=== PATIENT | male | born 2000 | race Caucasian/White ===

== ENCOUNTER 2021-12-04 13:43 | Outpatient (CLI) | payer OTHER, SELFPAY ==
--- NOTE | ~2021-12-04 | MR_ITS ---
EXAMINATION: MR knee LT wo con DATE: 12/04/2021 14:36 INDICATION: Left knee pain. TECHNIQUE: Magnetic resonance imaging (MRI) of the left knee was performed without intravenous contra st. Sequences included coronal PD-weighted FSE, coronal PD-weighted FS FSE, sagittal T2-weighted FSE , sagittal PD-weighted FS FSE and axial PD weighted fat saturated FSE. COMPARISON: None. FINDINGS: Medial compartment: Medial meniscus is normal. Articular cartilage is normal. Lateral compartment: Lateral meniscus is normal. Articular cartilage is normal. Patellofemoral compartment: Articular cartilage is normal. Ligaments and tendons: Anterior and posterior cruciate ligaments are normal. The medial collateral ligament and fibular will ateral ligament complex are normal. The extensor mechanism is normal. The visualized medial and later al hamstring tendons as well as the iliotibial band are normal. Fluid: Physiologic amount of fluid in the joint space. No loose osteochondral bodies identified. Osseous/other: Normal marrow signal. No fracture or pathologic marrow replacing process. Mild feathery muscular kaylan a with more prominent epimysial edema along the proximal medial head of the gastrocnemius muscle with out a discrete tear defect consistent with low-grade strain. IMPRESSION: 1. Low-grade strain of the proximal medial head of the gastrocnemius muscle. Reviewed, dictated and finalized at location A.
== END 2021-12-04 13:44 | disposition home or self-care (01) ==
PROVIDERS: PCP Family Medicine Adolescent Medicine; Visit Provider Physician Assistant
DX: S86.812A Strain of other muscle(s) and tendon(s) at lower leg level, left leg, initial encounter (principal); X58.XXXA Exposure to other specified factors, initial encounter
CPT/HCPCS: 73721

== ENCOUNTER 2022-04-29 16:46 | Emergency (ER) | payer OTHER, SELFPAY ==
--- NOTE | ~2022-04-29 | CT_ITS ---
EXAMINATION: CT brain wo con DATE: 04/29/2022 18:20 INDICATION: head injury . TECHNIQUE: Computed tomography (CT) of the head was performed without intravenous contrast. The mA wa s adjusted according to patient size. Iterative reconstruction technique was employed. The dose-lengt h product was 832.33 mGy-cm. COMPARISON: None. FINDINGS: Exam limited by motion, which required repeat imaging. No acute intracranial hemorrhage or extra-axial fluid collection. No hydrocephalus, mass, or herniation. No acute ischemic infarct. Unremarkable dural venous sinus attenuation. No acute osseous abnormality. The aerated spaces are clear. IMPRESSION: Mildly motion limited examination. No definite acute intracranial process. Reviewed, dictated and finalized at location K. CT TECH
[2022-04-29 17:17] VITALS: BP 143/92; PULSE 90; RESP 16; TEMP 36.9; O2SAT 98
--- NOTE | 2022-04-29 18:05 | ED.HEATRA ---
HPI - Head Injury General Chief complaint: Head Injury Stated complaint: hit in the head several times playing hockey Time Seen by Provider: 04/29/22 17:51 Source: patient Mode of arrival: EMS Limitations: other (patient does not fully remember incident) History of Present Illness HPI Narrative: This is a 21 year old male that presents to the ER after a head injury today. Reports he was hit in the head with a hockey puck. Reports he does not think that he lost consciousness, although he does not fully remember how he got back to the bench after. Reports he has felt lightheaded, dizzy and had a headache. Reports photophobia. No other focal injuries. Denies visual changes, vomiting, focal numbness or weakness. Related Data Home Medications Medication Instructions Recorded Confirmed ibuprofen 800 mg tablet 800 mg PO BID 11/16/21 Allergies Allergy/AdvReac Type Severity Reaction Status Date / Time No Known Allergies Allergy Verified 04/23/22 11:25 Review of Systems Review of Systems: CONSTITUTIONAL: Denies fever EYES: Denies visual changes GASTROINTESTINAL: Denies vomiting MUSCULOSKELETAL: Denies back pain, joint pain, or myalgia. NEUROLOGIC: Reports headache. Denies numbness, or weakness. PSYCHIATRIC: Denies anxiety or depression. All systems reviewed & are unremarkable except as noted in HPI and below PMFSH Past Medical History Medical History (Updated 04/29/22 @ 18:46 by Marge Stevens PA-C) Asthma Surgical History Surgical History (Updated 11/30/21 @ 10:50 by Mera Alston) History of tympanostomy tube placement bilateral Family History Family History (System 11/30/21 @ 10:50 by Mera Alston) Father Hypertension Grandparent Acute myocardial infarction Breast cancer Diabetes mellitus Mother Asthma Depression Social History Social History (Updated 04/29/22 @ 18:08 by Marge Stevens PA-C) Smoking packs per day: 0.5 Smoking cigarettes per day: 10.0 Years smoked: 6 Smoking pack-years: 3.00 Smoking status: Current every day smoker Tobacco type: cigarettes Second hand tobacco smoke exposure: Yes Alcohol intake: current Drinks per week: 6 Substance use: current Substance use type: marijuana Gender identity (if verbalized by the patient): Male Sexual Orientation (if Verbalized by the Patient): Straight or Heterosexual Spiritual care concerns: No Agree to blood products: Yes Exam Narrative: GENERAL: Well-appearing, well-nourished, and in no acute distress. HEAD: Normocephalic, atraumatic. EYES: PERRLA and EOMI. ENT: Nares clear, no rhinorrhea or epistaxis. Mucous membranes moist. Oropharynx without tonsillar hypertrophy exudate or other lesions. Bilateral TMs pearly duong non-bulging NECK: Supple. No adenopathy or masses. CHEST: Clear to auscultation. No respiratory distress. No wheezes rales or rhonchi HEART: Regular rate and rhythm. No murmur heard. Normal peripheral pulses. EXTREMITIES: Normal range of motion. No edema or obvious deformity. Strength equal in bilateral upper and lower extremities (5/5) SKIN: Warm, dry, no rash. NEURO: No focal deficits. Alert and oriented x3. Cranial nerves II through XII grossly intact PSYCH: Normal mood and affect Course Vital Signs Vital signs: Vital Signs Temperature 98.4 F 04/29/22 17:17 Pulse Rate 90 04/29/22 17:17 Respiratory Rate 16 04/29/22 17:17 Blood Pressure 143/92 H 04/29/22 17:17 Pulse Oximetry 98 04/29/22 17:17 Oxygen Delivery Room Air 04/29/22 17:17 Temperature 98.4 F 04/29/22 17:17 Pulse Rate 90 04/29/22 17:17 Respiratory Rate 16 04/29/22 17:17 Blood Pressure 143/92 H 04/29/22 17:17 Pulse Oximetry 98 04/29/22 17:17 Oxygen Delivery Room Air 04/29/22 17:17 MDM - Head Injury MDM Narrative Medical decision making narrative: Patient presents to the ER after a head injury today with headache and lightheadedness. Patient is neurologically intact
--- NOTE | 2022-04-29 18:27 | PC.NURSE ---
Patient refusing Tylenol, states I am just too pissed off to feel pain. YOUNG Bird notified.
[2022-04-29 19:09] VITALS: BP 124/76; PULSE 65; RESP 18; O2SAT 99
== END 2022-04-29 19:17 | disposition home or self-care (01) ==
PROVIDERS: Emergency Provider Physician Assistant; PCP Family Medicine Adolescent Medicine
DX: S09.90XA Unspecified injury of head, initial encounter (principal); J45.909 Unspecified asthma, uncomplicated; W21.220A Struck by ice hockey puck, initial encounter; Y93.22 Activity, ice hockey; F17.210 Nicotine dependence, cigarettes, uncomplicated
CPT/HCPCS: 70450; 99284

== ENCOUNTER 2022-05-12 02:25 | Emergency (ER) | payer OTHER, SELFPAY ==
[2022-05-12 02:27] VITALS: BP 149/91; PULSE 93; RESP 18; TEMP 36.4; O2SAT 98
--- NOTE | 2022-05-12 02:52 | ED.GENADULT ---
HPI - General Adult General Chief complaint: Fall Stated complaint: fall Time Seen by Provider: 05/12/22 02:40 History of Present Illness HPI narrative: This is a 21-year-old male presenting to ED after fall at work. Patient says that his left leg locked up and he fell to the ground. His coworkers insisted that he come to the emergency room for evaluation. The patient does not want to be here. He says that he has been having this issue with his knee for approximately 4 years. He has this appointment with an orthopedic surgeon in approximately 1 month. He denies any other complaints at this time. Related Data Home Medications Medication Instructions Recorded Confirmed ibuprofen 800 mg tablet 800 mg PO BID 11/16/21 05/03/22 Allergies Allergy/AdvReac Type Severity Reaction Status Date / Time No Known Allergies Allergy Verified 05/12/22 02:33 [facility] Past Medical History Medical History (Updated 05/12/22 @ 02:57 by Charly Odom MD) Asthma Chronic knee pain Surgical History Surgical History History of tympanostomy tube placement bilateral Family History Family History Father Hypertension Grandparent Acute myocardial infarction Breast cancer Diabetes mellitus Mother Asthma Depression Social History Social History Smoking packs per day: 0.5 Smoking cigarettes per day: 10.0 Years smoked: 6 Smoking pack-years: 3.00 Smoking status: Current every day smoker Tobacco type: cigarettes Second hand tobacco smoke exposure: Yes Alcohol intake: current Drinks per week: 6 Substance use: current Substance use type: marijuana Gender identity (if verbalized by the patient): Male Sexual Orientation (if Verbalized by the Patient): Straight or Heterosexual Spiritual care concerns: No Agree to blood products: Yes Exam Narrative: APPEARANCE: No apparent distress. Head: atraumatic. EYES: EOMI, NOSE: Atraumatic NECK: Trachea midline RESPIRATORY: No increased rate of breathing CARDIOVASCULAR: RRR, ABDOMINAL: Non-distended MUSCULOSKELETAl: focal exam of the left knee reveals no obvious deformities, bruising, swelling or erythema. Extension and flexion are intact. No masses behind the knee. No calf tenderness. Pulses are +2 the Pt in DTP distribution and cap refills less than 2 seconds. NEURO: Alert. Moving 4/4 extremities SKIN:: Warm, dry. Normal color PSYCHIATRIC: Normal affect Course Vital Signs Vital signs: Vital Signs Temperature 97.6 F 05/12/22 02:27 Pulse Rate 93 05/12/22 02:27 Respiratory Rate 18 05/12/22 02:27 Blood Pressure 149/91 H 05/12/22 02:27 Pulse Oximetry 98 05/12/22 02:27 Oxygen Delivery Room Air 05/12/22 02:27 Temperature 97.6 F 05/12/22 02:27 Pulse Rate 93 05/12/22 02:27 Respiratory Rate 18 05/12/22 02:27 Blood Pressure 149/91 H 05/12/22 02:27 Pulse Oximetry 98 05/12/22 02:27 Oxygen Delivery Room Air 05/12/22 02:27 Medical Decision Making MDM Narrative Medical decision making narrative: DDX includes but is not limited to: Muscle spasm, chronic knee pain, arthritis Co-morbidities complicating care: chronic knee pain External Chart Review: none Hx from independent Sources: none Discussion of Management: none Independent interpretation of studies: none Dx tests considered but not ordered: x-rays were considered however the patient's issue is chronic and there were no acute traumatic events. X-ray would be low yield. Shared decision making: I offered to get an x-ray the patient's knee but he refused. The patient has appropriate outpatient follow-up scheduled. Patient would like to go home. He refused pain medication Procedures: none Interventions: none this is a 21-year-old presenting to ED after a fall at work. His left kne
== END 2022-05-12 03:07 | disposition home or self-care (01) ==
PROVIDERS: Emergency Provider Emergency Medicine; PCP Family Medicine Adolescent Medicine
DX: M25.562 Pain in left knee (principal); G89.29 Other chronic pain; J45.909 Unspecified asthma, uncomplicated; F17.210 Nicotine dependence, cigarettes, uncomplicated; W18.39XA Other fall on same level, initial encounter
CPT/HCPCS: 99281

== ENCOUNTER 2022-05-25 23:35 | Emergency (ER) | payer OTHER, SELFPAY ==
[2022-05-25 23:45] VITALS: BP 130/60; PULSE 86; TEMP 37.3; O2SAT 97
--- NOTE | 2022-05-26 00:04 | PC.NURSE ---
Patient approached the intake desk and informed verse writer I'm sorry to waste your time but I'm not going to wait. I'm going to go . Patient alert and ambulatory out the ED exit.
== END 2022-05-25 23:58 | disposition left against medical advice (07) ==
PROVIDERS: PCP Family Medicine Adolescent Medicine
DX: Z53.21 Procedure and treatment not carried out due to patient leaving prior to being seen by health care provider (principal)
CPT/HCPCS: 99199

== ENCOUNTER 2022-10-03 10:02 | Emergency (ER) | payer OTHER, SELFPAY ==
--- NOTE | ~2022-10-03 | US_ITS ---
Limited Abdominal Sonogram: Real-time sonographic imaging of the right upper quadrant was performed. Clinical History: Right upper quadrant pain Findings: The liver appears normal with no evidence of mass lesion or bile duct dilatation. Main por vic vein demonstrates normal direction of flow. The gallbladder is well distended, and appears normal with no evidence of gallstone or wall thickening. The common bile duct measures 2 mm. The visualize d pancreas, aorta, and IVC are unremarkable. Impression: No significant abnormality seen. Reviewed, dictated and finalized at location M. Impression: No significant abnormality seen.
[2022-10-03 10:03] VITALS: BP 146/94; PULSE 83; RESP 16; TEMP 36.6; O2SAT 98
[2022-10-03 10:31] LABS: Basophils Percent Auto 0.4 % (0.2-1.2); Eosinophils Absolute Auto 0.2 K/mm3 (0-0.3); Eosinophils Percent Auto 1.6 % (0-4.4); Hematocrit 48.2 % (42.0-52.0); Hemoglobin 16.7 g/dL (14.0-18.0); Immature Granulocyte Absolute 0.03 K/mm3 (0.00-0.031); Immature Granulocyte Percent A 0.3 % (0-0.5); Lymphocytes Absolute Auto 2.34 K/mm3 (0.9-3.2); Mean Corpuscular HGB Conc 34.6 g/dl (32-36); Mean Corpuscular Hemoglobin 30.8 pg (26-34); Mean Corpuscular Volume 88.8 fl (80-100); Monocytes Absolute Auto 0.7 K/mm3 (0.1-0.6); Monocytes Percent Auto 6.7 % (2.6-8.5); Neutrophils Absolute Auto 7.4 K/mm3 (1.3-6.7); Platelet Count Result 262 k/mm3 (150-375); Red Blood Count 5.43 M/mm3 (4.6-6.20); Red Cell Distribution Width 13.7 % (11.5-14.5); White Blood Count 10.6 K/mm3 (4.5-10.0)
[2022-10-03 10:36] LABS: Partial Thromboplastin Time 30.6 SECONDS (22.3-36.8); Prothrombin Time 13.1 Seconds (11.1-14.7)
[2022-10-03 10:38] LABS: Alanine Aminotransferase 26 U/L (6-50); Albumin Level 4.8 g/dL (3.5-5.1); Alkaline Phosphatase 71 U/L (38-126); Anion Gap 8 mmol/L (8-16); Aspartate Amino Transferase 30 U/L (17-59); Blood Urea Nitrogen 7 mg/dL (9-20); Calcium 9.4 mg/dL (8.4-10.2); Carbon Dioxide 26 mmol/L (22-30); Chloride 107 mmol/L (98-107); Estimated CRCL calculation 149 ml/min; Estimated Glomerular Filt Rate > 60; Glucose 94 mg/dL (65-110); Sodium 141 mmol/L (137-145)
--- NOTE | 2022-10-03 10:45 | ED.GENADULT ---
HPI - General Adult General Chief complaint: GI Bleed Stated complaint: blood in stool Time Seen by Provider: 10/03/22 10:30 Source: patient Mode of arrival: ambulatory Limitations: no limitations History of Present Illness HPI narrative: This is a 22-year-old male who presents to the ED with chief complaint of right red blood streaks in his stools. This has been going on for the past couple of days. He reports frequent straining and constipation. Patient states that he has a painful bump around the rectum. He feels that this is much more bothersome during bowel movements. Denies fevers, chills, abdominal pain, emesis, melena. Related Data Allergies Allergy/AdvReac Type Severity Reaction Status Date / Time No Known Allergies Allergy Verified 10/03/22 10:21 Review of Systems Review of Systems: CONSTITUTIONAL: Denies fever, chills, or sweats. EYES: Denies visual changes, redness, or discharge. ENT: Denies rhinorrhea, congestion, sore throat, or otalgia. CARDIOVASCULAR: Denies chest pain, palpitations, or edema. RESPIRATORY: Denies cough or dyspnea. GASTROINTESTINAL: See HPI GENITOURINARY: Denies dysuria or hematuria. SKIN: Denies rash or itching. MUSCULOSKELETAL: Denies back pain, joint pain, or myalgia. NEUROLOGIC: Denies headache, numbness, dizziness, or weakness. PSYCHIATRIC: Denies anxiety or depression. [facility] Past Medical History Medical History Asthma Chronic knee pain Ear pain Surgical History Surgical History History of tympanostomy tube placement bilateral History of wisdom tooth extraction Family History Family History Father Hypertension Grandparent Acute myocardial infarction Breast cancer Diabetes mellitus Mother Asthma Depression Social History Social History Smoking packs per day: 0.5 Smoking cigarettes per day: 10.0 Years smoked: 6 Smoking pack-years: 3.00 Smoking status: Current every day smoker Tobacco type: cigarettes Second hand tobacco smoke exposure: Yes Alcohol intake: current Drinks per week: 50 Alcohol use details: 6 beers and a fifth daily Substance use: current Substance use type: marijuana Lack of Transportation: No Lack of Food: Sometimes True Current Housing: I Have Housing Concerned About Future Housing: No Difficulty Paying Gas/Electric Bills: Decline to Answer Difficulty Paying for Meds: Decline to Answer Currently Unemployed: No Education: High School Diploma/GED Difficulty w/ Childcare or Family Care: Decline to Answer Living arrangements: with family Occupation/Education: occupation Gender identity (if verbalized by the patient): Male Sexual Orientation (if Verbalized by the Patient): Straight or Heterosexual Spiritual care concerns: No Agree to blood products: Yes Exam Narrative: GENERAL: Well-appearing, well-nourished, and in no acute distress. HEAD: Normocephalic, atraumatic. EYES: PERRLA and EOMI. ENT: Nares clear, no rhinorrhea or epistaxis. Mucous membranes moist. Oropharynx without tonsillar hypertrophy exudate or other lesions. NECK: Supple. No adenopathy or masses. CHEST: No respiratory distress. Clear to auscultation. No wheezes rales or rhonchi HEART: Regular rate and rhythm. No murmur heard. Normal peripheral pulses. ABDOMEN: Soft, nontender, nondistended, normal active bowel sounds. MSK: Normal range of motion. No edema. SKIN: Warm, dry, no rash. NEURO: Alert and oriented x3. No focal deficits. PSYCH: Normal mood and affect. Rectal exam performed with nurse Lino present: No anal fissures. No carlos blood No external or internal hemorrhoids Stool guaiac is negative. Course Vital Signs Vital signs: Vital Signs Temperature 97.9 F 06/
[2022-10-03 11:43] VITALS: BP 134/69; PULSE 60; RESP 18; O2SAT 99
== END 2022-10-03 11:45 | disposition home or self-care (01) ==
PROVIDERS: Emergency Medicine; Emergency Provider Physician Assistant; PCP Family Medicine Adolescent Medicine
DX: K92.1 Melena (principal); J45.909 Unspecified asthma, uncomplicated; F17.210 Nicotine dependence, cigarettes, uncomplicated
CPT/HCPCS: 36415; 76705; 80053; 85025; 85610; 85730; 86850; 86900; 86901; 99284

== ENCOUNTER 2023-01-24 21:59 | Emergency (ER) | payer OTHER, SELFPAY ==
--- NOTE | ~2023-01-24 | XR_ITS ---
XR finger 3rd RT min 2V DATE: 01/24/2023 22:38 INDICATION: Laceration to third digit TECHNIQUE: 3 views COMPARISON: 02/07/2019 right hand FINDINGS: No fracture or dislocation, periosteal reaction or bone destruction. No subcutaneous emphys karol or radiopaque foreign body. IMPRESSION: Negative Reviewed, dictated and finalized at location A. IMPRESSION: Negative
[2023-01-24 22:23] VITALS: BP 128/82; PULSE 82; RESP 14; TEMP 36.6; O2SAT 100
[2023-01-25 00:51] VITALS: BP 127/86; PULSE 80; RESP 18; O2SAT 100
--- NOTE | 2023-01-25 02:50 | ED.WOUNDLAC ---
HPI - Wound/Laceration General Chief Complaint: Wound/Laceration Stated Complaint: laceration Time Seen by Provider: 01/25/23 02:08 Source: patient Mode of arrival: ambulatory Limitations: no limitations History of Present Illness HPI narrative: Patient is a 22 y/o male who presents to the ED with c/o laceration to his right third digit. Patient reports he was swinging a sledgehammer earlier today at work when he caught his finger in between a wooden stake and the sledgehammer. He sustained a laceration to the right third finger palmar surface. Denies significant pain. He is able to move his finger still. Denies numbness or tingling. Tetanus unknown. Related Data Allergies Allergy/AdvReac Type Severity Reaction Status Date / Time No Known Allergies Allergy Verified 10/03/22 10:21 Review of Systems Review of Systems: CONSTITUTIONAL: Denies fever, chills, or sweats. SKIN: See HPI. MUSCULOSKELETAL: See HPI. NEUROLOGIC: Denies tingling, numbness, or weakness. All systems reviewed & are unremarkable except as noted in HPI and below PMFSH Past Medical History Medical History Asthma Chronic knee pain Ear pain Surgical History Surgical History History of tympanostomy tube placement bilateral History of wisdom tooth extraction Family History Family History Father Hypertension Grandparent Acute myocardial infarction Breast cancer Diabetes mellitus Mother Asthma Depression Social History Social History Smoking packs per day: 0.5 Smoking cigarettes per day: 10.0 Years smoked: 6 Smoking pack-years: 3.00 Smoking status: Current every day smoker Tobacco type: cigarettes Second hand tobacco smoke exposure: Yes Alcohol intake: current Drinks per week: 50 Alcohol use details: 6 beers and a fifth daily Substance use: current Substance use type: marijuana Lack of Transportation: No Lack of Food: Sometimes True Current Housing: I Have Housing Concerned About Future Housing: No Difficulty Paying Gas/Electric Bills: Decline to Answer Difficulty Paying for Meds: Decline to Answer Currently Unemployed: No Education: High School Diploma/GED Difficulty w/ Childcare or Family Care: Decline to Answer Living arrangements: with family Occupation/Education: occupation Gender identity (if verbalized by the patient): Male Sexual Orientation (if Verbalized by the Patient): Straight or Heterosexual Spiritual care concerns: No Agree to blood products: Yes Exam Narrative: GENERAL: Well appearing, well-nourished, non-toxic, in no acute distress. HEAD: Normocephalic, atraumatic. NECK: Supple. No adenopathy, no masses. RESPIRATORY: Airway patent, respirations nonlabored. CARDIOVASCULAR: Regular rate and rhythm without murmurs, rubs, or gallops. Radial pulses 2+ and equal bilaterally. MUSCULOSKELETAL: Moves all extremities. Strength/ROM intact without gross deformities. Full range of motion of right fingers, no significant pain throughout right third digit. Small abrasions noted to extensor surface of third and fourth digits. 1 cm laceration to right third digit flexor surface just distal from MCP joint, small amount of subcutaneous fat exposed. No significant tenderness along flexor surface. Sensation intact. Good capillary refill. SKIN: Warm, dry, normal color. No rashes. NEURO: A&O X3. Speech clear. Cranial nerves II-XII grossly intact. Steady gait. No ataxic movements. PSYCHIATRIC: Appropriate mood and affect. Normal interaction. Course Vital Signs Vital signs: Vital Signs Temperature 97.9 F 01/24/23 22:23 Pulse Rate 82 01/24/23 22:23 Respiratory Rate 14 01/24/23 22:23 Blood Pressure 128/82 01/24/23
[2023-01-25] MEDS: TETANUS,DIPHTHERIA,AC PERTUSSIS ADULT (0.5 ML) BOOSTRIX IM (03:34)
[2023-01-25 03:38] VITALS: BP 135/64; PULSE 79; RESP 15; O2SAT 99
== END 2023-01-25 03:51 | disposition home or self-care (01) ==
LOC: ANHED 01-25 03:20
PROVIDERS: Emergency Provider Physician Assistant; PCP Family Medicine Adolescent Medicine
DX: S61.212A Laceration without foreign body of right middle finger without damage to nail, initial encounter (principal); Z23 Encounter for immunization; J45.909 Unspecified asthma, uncomplicated; F17.210 Nicotine dependence, cigarettes, uncomplicated; W27.8XXA Contact with other nonpowered hand tool, initial encounter
CPT/HCPCS: 12001; 73140; 90471; 90715; 99283